=== PATIENT | male | born 1985 | race Caucasian/White ===

== ENCOUNTER 2016-11-14 16:17 | Emergency (ER) | payer SELFPAY ==
[~2016-11-14] VITALS: Ht 177.8 cm; Wt 84.7 kg
[~2016-11-14 16:17] MED LIST: ALBUTEROL SULF8.5 GM IH; ALBUTEROL2.5 MG/3 M IH; AUGMENTIN875 MG PO; CELEXA20 MG PO; CETIRIZINE HCL10 M2 PO; DIGESTIVE ADVA1 EACH PO; DOXYCYCLINE HY100 MG PO; DULERA 100 MCG/13 GM IH; GABAPENTIN300 MG PO; HYCODAN SYRUP480 ML PO; LISINOPRIL5 MG PO; LORTAB 5-325 M1 EACH PO; MONTELUKAST SOD10 MG PO; NAPROSYN500 MG PO; NAPROXEN500 MG PO; NASONEX17 GM BOTH NARES; NEURONTIN100 MG PO; PEN-VEE K,VEET500 MG PO; PREDNISONE10 M1 PO; PREDNISONE10 MG PO; PREDNISONE20 MG PO; PREDNISONE50 MG PO; PROAIR HFA8.5 GM IH; PROVENTIL,2.5 MG/3 M IH; SYMBICORT60 INHALAT IH; TRAMADOL HCL50 MG PO; VALIUM5 MG PO; VENTOLIN HFA18 GM IH; XANAX0.25 MG PO; ZITHROMAX Z-PA250 MG PO; ZYRTEC10 M2 PO
[2016-11-14 18:09] LABS: ADD MIUA? NO; BILIRUBIN NEGATIVE; BLOOD NEGATIVE; COLOR YELLOW ((YELLOW)); GLUCOSE (STRIP) NEGATIVE; KETONES NEGATIVE; LEUKOCYTES NEGATIVE; NITRITE NEGATIVE; PROTEIN (STRIP) NEGATIVE; SPECIFIC GRAVITY 1.011 (1.000-1.030); UROBILINOGEN 0.2 MG/DL (0.2-1.0)
[2016-11-14 19:14] LABS: INFLUENZA A VIRAL ANTIGEN ND
[2016-11-14] MEDS ORDERED: TAMIFLU75 MG PO (19:41)
[2016-11-14] MEDS ORDERED: LEVAQUIN500 MG PO (19:41)
[2016-11-14] MEDS ORDERED: VENTOLIN HFA18 GM IH (19:41)
[2016-11-14] MEDS ORDERED: PREDNISONE20 MG PO (19:41)
[2016-11-14 20:20] VITALS: BP 125/80
== END 2016-11-14 20:21 | disposition home or self-care (01) ==
LOC: EXP 16:17 → EME 16:17 → EXP 20:21
PROVIDERS: Physician Assistant
DX: R50.9 Fever, unspecified (principal); J45.909 Unspecified asthma, uncomplicated; R05 Cough; R52 Pain, unspecified; R11.10 Vomiting, unspecified; J34.89 Other specified disorders of nose and nasal sinuses; R07.89 Other chest pain; Z87.891 Personal history of nicotine dependence
CPT/HCPCS: 71020; 81003; 87502; 99281; 99284; J7512

== ENCOUNTER 2017-01-29 11:23 | Emergency (ER) | payer SELFPAY ==
[~2017-01-29] VITALS: Ht 177.8 cm; Wt 87.7 kg
[~2017-01-29 11:23] MED LIST changes: +LEVAQUIN500 MG PO; +TAMIFLU75 MG PO
[2017-01-29 12:25] LABS: HEMATOCRIT 49.2 % (38.0-50.0); MCH 30.3 PG (29.0-34.0); MCHC 33.7 G/DL (30.0-36.0); MCV 89.9 FL (86-99); MEAN PLAT.VOLUME 10.1 uM^3 (9.0-12.4); PLATELET COUNT 333 K/uL (156-360); RBC DIS.WIDTH-CV 13.6 % (11.8-14.6); RBC DIS.WIDTH-SD 45.7 % (39-53); RED BLOOD COUNT 5.47 M/uL (4.00-5.50); WHITE BLOOD COUNT 13.8 K/uL (4.1-10.2)
[2017-01-29 12:40] LABS: CHLORIDE 108 mEq/L (99-109); POTASSIUM 4.1 mEq/L (3.7-5.4)
[2017-01-29 12:41] LABS: SODIUM 138 mEq/L (136-147)
[2017-01-29 12:42] LABS: GLUCOSE 98 mg/dL (70-99)
[2017-01-29 12:44] LABS: ANION GAP 10 MEQ/L (2-14)
[2017-01-29 12:46] LABS: GFR ESTIMATE (CALCULATED) > 59 mL/min/
[2017-01-29 12:47] LABS: UREA NITROGEN (BUN) 9 mg/dL (9-23)
[2017-01-29 12:54] VITALS: BP 132/75
[2017-01-29 13:49] LABS: TOTAL BILIRUBIN 0.9 mg/dL (0.0-1.0)
[2017-01-29 13:50] LABS: ALKALINE PHOSPHATASE 106 IU/L (3-129)
[2017-01-29 13:53] LABS: DIRECT BILIRUBIN 0.3 mg/dL (0.0-0.3)
[2017-01-29 13:54] LABS: LIPASE 17 U/L (1.0-51.0)
== END 2017-01-29 15:27 | disposition left against medical advice (07) ==
LOC: EME 11:23
DX: R10.9 Unspecified abdominal pain (principal); R11.2 Nausea with vomiting, unspecified; Z87.891 Personal history of nicotine dependence; I10 Essential (primary) hypertension
CPT/HCPCS: 80048; 80076; 81003; 83690; 85027; 99281; 99282

== ENCOUNTER 2017-10-14 19:10 | Emergency (ER) | payer SELFPAY ==
[~2017-10-14] VITALS: Ht 177.8 cm; Wt 86.8 kg
[2017-10-14 20:23] LABS: HEMATOCRIT 46.1 % (38.0-50.0); HEMOGLOBIN 15.5 G/DL (12.5-16.6); MCH 30.8 PG (29.0-34.0); MCHC 33.6 G/DL (30.0-36.0); MCV 91.5 FL (86-99); PLATELET COUNT 301 K/uL (156-360); RBC DIS.WIDTH-SD 43.3 % (39-53); RED BLOOD COUNT 5.04 M/uL (4.00-5.50); WHITE BLOOD COUNT 6.7 K/uL (4.1-10.2)
[2017-10-14 20:31] LABS: ALBUMIN 4.2 g/dL (3.2-4.8); CHLORIDE 104 mEq/L (99-109); POTASSIUM 3.3 mEq/L (3.7-5.4); SODIUM 139 mEq/L (136-147)
[2017-10-14 20:33] LABS: GLUCOSE 99 mg/dL (70-99)
[2017-10-14 20:34] LABS: TOTAL PROTEIN 7.4 g/dL (6.4-8.3)
[2017-10-14 20:35] LABS: TOTAL BILIRUBIN 1.2 mg/dL (0.0-1.0)
[2017-10-14 20:37] LABS: ALKALINE PHOSPHATASE 124 IU/L (3-129); CREATININE 0.8 mg/dL (0.6-1.3); GFR ESTIMATE (CALCULATED) > 59 mL/min/ (58.99-99999)
[2017-10-14 20:38] LABS: UREA NITROGEN (BUN) 7 mg/dL (9-23)
[2017-10-14 20:39] LABS: AST (GOT) 16 IU/L (2-34)
[2017-10-14 20:40] LABS: ALT (GPT) 15 IU/L (3-49)
[2017-10-14] MEDS ORDERED: ZOFRAN4 MG PO (21:21)
[2017-10-14 21:51] VITALS: BP 135/94
== END 2017-10-14 21:52 | disposition home or self-care (01) ==
LOC: EME 19:10
DX: R11.2 Nausea with vomiting, unspecified (principal); R19.7 Diarrhea, unspecified; I10 Essential (primary) hypertension; J45.909 Unspecified asthma, uncomplicated; Z87.891 Personal history of nicotine dependence
CPT/HCPCS: 80053; 81003; 85027; 99281; 99283